=== PATIENT | male | born 2000 | race Caucasian/White ===

== ENCOUNTER → 2025-01-23 15:17 | Outpatient (REF) | payer OTHER, SELFPAY | LOC: RAD 15:17 | PROVIDERS: ATTENDING PHYSICIAN Family Medicine | DX: M54.2 Cervicalgia (principal) | CPT/HCPCS: 72050 ==

== ENCOUNTER → 2025-02-04 15:00 | Outpatient (REF) | payer BC, SELFPAY | LOC: HWRAD 15:00 | PROVIDERS: ATTENDING PHYSICIAN Family Medicine | DX: N50.89 Other specified disorders of the male genital organs (principal) | CPT/HCPCS: 76870; 93976 ==